=== PATIENT | female | born 1990 | race Two or more races ===

== ENCOUNTER 2019-12-05 09:00 | Emergency (ER) | payer MEDICAID, OTHER ==
[~2019-12-05] VITALS: Ht 165.1 cm; Wt 112.0 kg
[2019-12-05 09:10] VITALS: BP 149/101
== END 2019-12-05 10:08 | disposition home or self-care (01) ==
LOC: ER 09:00
DX: S70.362A Insect bite (nonvenomous), left thigh, initial encounter (principal); W57.XXXA Bitten or stung by nonvenomous insect and other nonvenomous arthropods, initial encounter; Y93.89 Activity, other specified; Y99.8 Other external cause status; Y92.89 Other specified places as the place of occurrence of the external cause